=== PATIENT | male | born 1960 | race Caucasian/White ===

== ENCOUNTER 2017-01-24 18:27 | Emergency (ER) | payer OTHER ==
[~2017-01-24] VITALS: Ht 180.3 cm; Wt 159.1 kg
[2017-01-24 18:26] VITALS: BP 167/109; PULSE 86; RESP 15; O2SAT 96
[2017-01-24] MEDS ORDERED: DABI75CA3 PO (18:36)
[2017-01-24] MEDS ORDERED: DIAZ10TA3 PO (18:36)
--- NOTE | 2017-01-24 19:04 | DRSVH ---
PROCEDURE: X-RAY RIGHT ANKLE, MINIMUM THREE VIEWS ([id number]) INDICATIONS: right ankle pain TECHNIQUE: 3 views of the ankle were acquired. COMPARISON: None. FINDINGS: Bones: No fractures or dislocations. Ankle mortise is normally aligned. No suspicious bony lesions . Soft tissues: No tibiotalar joint effusion. Achilles tendon appears normal. IMPRESSION: No visualized acute fracture or dislocation. However, if clinical concern and/or pain pe rsist, short interval imaging followup in 7-10 days is recommended, as occult injury cannot be defini tively excluded. Dictated by: Lazara Murillo M.D. on 01/24/2017 at 19:02 Approved by: Lazara Murillo M.D. on 01/24/2017 at 19:02
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
[2017-01-24] MEDS: HYDROmorphone 1 mg/mL Inj IVPUSH PRN ×3 (20:10→22:05)
[2017-01-24 20:11] VITALS: BP_SYST 124; BP_SYST 157; BP_DIAS 119; BP_DIAS 79; PULSE 88; O2SAT 96
[2017-01-24 20:19] LABS: BASOPHILS % (AUTO) 1.1 % (0-3); EOSINOPHILS % (AUTO) 1.3 % (0-5); MONOCYTES % (AUTO) 11.2 % (4-12); Mean Corpuscular Hemoglobin 29.3 pg (27.0-35.0); Mean Corpuscular Volume 85.9 fL (81-100); NEUTROPHILS % (AUTO) 56.7 % (40-74); Platelet Count 275 bil/L (150-400)
[2017-01-24 20:22] LABS: INR 0.97 ratio
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
[2017-01-24] MEDS ORDERED: Lidocaine 4% 50 mL Topical Solution TOPICAL ONE ×2 (21:21)
[2017-01-24] MEDS ORDERED: TdaP Vaccine 0.5 mL Inj IM ONE (22:00)
[2017-01-24] MEDS ORDERED: PHA MIX IV ONE (22:05)
[2017-01-24] MEDS ORDERED: DEXTROSE 5% IV ONE (22:05)
[2017-01-24] MEDS ORDERED: CEFAZOLIN IV ONE (22:05)
[2017-01-24 22:08] VITALS: BP 147/86; PULSE 123; O2SAT 95
[2017-01-24] MEDS ORDERED: _oxyCODONE/APAP 5-325 mg Tablet PO PRN (22:35)
[2017-01-24 22:39] VITALS: PULSE 122; RESP 19; O2SAT 95
[2017-01-24 22:49] VITALS: BP 149/82; PULSE 118; RESP 19; O2SAT 95
[2017-01-25] MEDS: HYDROmorphone 1 mg/mL Inj IVPUSH PRN (00:37)
[2017-01-25 01:31] VITALS: BP 139/77; PULSE 98; RESP 12; O2SAT 96
== END 2017-01-25 01:34 | disposition home or self-care (01) ==
LOC: SED 18:27 → EDBD 18:27 → SED 01-25 01:34
DX: S49.81XA Other specified injuries of right shoulder and upper arm, initial encounter (principal); S51.011A Laceration without foreign body of right elbow, initial encounter; S50.01XA Contusion of right elbow, initial encounter; S99.811A Other specified injuries of right ankle, initial encounter; V29.9XXA Motorcycle rider (driver) (passenger) injured in unspecified traffic accident, initial encounter; Y93.89 Activity, other specified; Y92.410 Unspecified street and highway as the place of occurrence of the external cause; Y99.8 Other external cause status; I26.99 Other pulmonary embolism without acute cor pulmonale; Z23 Encounter for immunization
CPT/HCPCS: 12002; 36415; 70450; 73030; 73080; 73610; 73630; 80053; 85014; 85018; 85025; 85610; 90471; 90715; 96361; 96374; 96375; 96376; 99284; J0690; J1170